=== PATIENT | female | born 1995 | race Caucasian/White ===

== ENCOUNTER 2017-03-09 02:55 | Emergency (ER) | payer BC ==
[~2017-03-09] VITALS: Ht 167.6 cm; Wt 65.9 kg
[2017-03-09 02:58] VITALS: BP 142/84; TEMP 98.4
[2017-03-09] MEDS ORDERED: PROAIR HFA0.09 MG/AC IH ×2 (03:00→03:15)
[2017-03-09 04:22] VITALS: PULSE 115
== END 2017-03-09 04:25 | disposition home or self-care (01) ==
LOC: COL.ER 02:55
DX: J45.901 Unspecified asthma with (acute) exacerbation (principal)
CPT/HCPCS: J8540